=== PATIENT | male | born 1950 | race Caucasian/White ===

== ENCOUNTER 2020-09-29 11:38 | Inpatient (IN) | payer BC, SELFPAY ==
[~2020-09-29] VITALS: Ht 165.1 cm; Wt 65.8 kg
--- NOTE | 2020-09-29 11:40 | NUR ---
CALLED TO HEATHER ALMANZA AND REQUESTING TO GET REPORT ON PT. SPOKE WITH MADELEINE AND RECEIVED REPORT
--- NOTE | 2020-09-29 11:40 | NUR ---
Placed in room 03 . Placed on telemetry monitor, blood pressure machine and pulse oximeter. To gown for exam. Side rails up.
[2020-09-29 11:46] VITALS: BP_SYST 165
--- NOTE | 2020-09-29 11:55 | NUR ---
DR ARTIS IN TO ASSESS
[2020-09-29] MEDS ORDERED: LevALBUTEROL HCL 1.25 MG/0.5 ML *CONC.* VIAL.NEB (XOPENEX CONC.) INH ONE (12:15)
--- NOTE | 2020-09-29 12:33 | NUR ---
LABS, EKG, RT TREATMENT COMPLETED
[2020-09-29 12:49] LABS: ANION GAP 8 (5-15); CALCIUM 8.5 mg/dL (8.4-11.0); CHLORIDE 95 mmol/L (98-107); CREATININE 1.12 mg/dL (0.55-1.30); GLUCOSE 118 mg/dL (70-99); POTASSIUM 3.4 mmol/L (3.5-5.1); SODIUM SERUM 131 mmol/L (136-145); UREA NITROGEN, BLOOD 44 mg/dL (8-21)
[2020-09-29 12:54] LABS: ALANINE AMINOTRANSFERASE 414 U/L (12-78); ALBUMIN 2.8 g/dL (3.4-4.8); ASPARTATE AMINOTRANSFERASE 49 U/L (10-37); TOTAL BILIRUBIN 0.7 mg/dL (0.0-1.0)
[2020-09-29] MEDS ORDERED: NITROGLYCERIN 1 INCH (GM) OINT. TD ONE (13:00)
[2020-09-29] MEDS ORDERED: ASPIRIN 81 MG TAB.CHEW PO ONE (13:00)
[2020-09-29 13:01] LABS: BASOPHILS % (AUTO) 0.2 % (0.0-2.0); EOSINOPHILS # (AUTO) 0.1 K/uL (0.0-0.4); EOSINOPHILS % (AUTO) 1.1 % (0.0-4.0); LYMPHOCYTES # (AUTO) 0.9 K/uL (1.0-5.5); LYMPHOCYTES % (AUTO) 12.5 % (20.5-51.5); MEAN CORPUSCULAR HEMOGLOBIN 27 pg (27-31); MEAN CORPUSCULAR HGB CONC 32 % (32-36); MEAN CORPUSCULAR VOLUME 84 fL (79.0-98.0); MONOCYTES # (AUTO) 1.2 K/uL (0.0-1.0); MONOCYTES % (AUTO) 16.1 % (1.7-9.3); NEUTROPHILS % (AUTO) 70.1 % (40.0-70.0); PLATELET COUNT (AUTO) 256 K/uL (130-430); RED BLOOD CELL COUNT(AUTO) 2.42 MIL/uL (4.2-6.2); RED CELL DISTRIBUTION WIDTH 21.4 % (9.0-15.0); WHITE BLOOD COUNT (AUTO) 7.2 K/uL (4.8-10.8)
[2020-09-29 13:03] LABS: INR 0.9 (0.80-1.20); PROTHROMBIN TIME 9.6 SECS (9.5-12.5)
--- NOTE | 2020-09-29 13:04 | NUR ---
TROPONIN ELEVATED 0.304 REPORTED
[2020-09-29 13:10] LABS: HEMATOCRIT 20.3 % (36-54); HEMOGLOBIN 6.6 g/dL (14.0-18.0)
--- NOTE | 2020-09-29 13:48 | NUR ---
Notified ED Admitting regarding pt pending admission/transfer. Will contact pt rehabilitation case coordinator regarding this matter.
--- NOTE | 2020-09-29 13:56 | NUR ---
Per insurance underwriter sales, requested fax of facesheet and clinicals to [phone]. Per matrix call [facility] for admission.
--- NOTE | 2020-09-29 14:08 | NUR ---
CALM, ALERT, UPDATE PROVIDED, NO DISTRESS.
[2020-09-29] MEDS ORDERED: LORazepam 2 MG/ML VIAL IVP PRN (15:00)
[2020-09-29] MEDS ORDERED: PANTOPRAZOLE SODIUM 40 MG/VIAL (PROTONIX) IVP ONE (15:00)
[2020-09-29] MEDS ORDERED: ALBUTEROL SULFATE 0.083% 2.5 MG/3 ML VIAL.NEB INH PRN (15:00)
[2020-09-29] MEDS ORDERED: BANANA BAG 1 EA, FOLIC ACID 1 MG, THIAMINE HCL 100 MG, MAGNESIUM SULFATE 1 GM, MVI 10 M... IV SCH ×5 (15:00)
[2020-09-29] MEDS ORDERED: IPRATROPIUM BROM 0.5 MG/2.5 ML VIAL.NEB (ATROVENT) INH PRN (15:00)
--- NOTE | 2020-09-29 15:04 | NUR ---
Patient will be admitted to care of [facility]. Admitted to TELE unit. Will go to room 112. Belongings list completed. Complete and up to date summary report printed. SBAR report to be given at bedside with opportunity for questions.
--- NOTE | 2020-09-29 15:15 | NUR ---
CARDIO CONSULT REASON FOR CONSULTATION:+TROPONIN WAS CONSULT CALLED?Y PERSON WHO WAS NOTIFIED:KEVIN CONSULTING PHYSICIAN:ELLEN SAGASTUME OIL WELL SERVICE UNIT OPERATOR SPECIALTY:CARDIO OIL WELL SERVICE UNIT OPERATOR PHONE NUMBER:[phone] REQUESTING PHYSICIAN:MAILE VASQUEZ
[2020-09-29 15:30] VITALS: BP_SYST 136
[2020-09-29 15:32] VITALS: BP_SYST 148
[2020-09-29] MEDS: ALBUTEROL SULFATE 0.083% 2.5 MG/3 ML VIAL.NEB INH SCH ×3 (15:58→23:40)
[2020-09-29 15:59] VITALS: BP_SYST 136
[2020-09-29] MEDS: IPRATROPIUM BROM 0.5 MG/2.5 ML VIAL.NEB (ATROVENT) INH SCH ×3 (15:59→23:40)
[2020-09-29] MEDS ORDERED: FLU VACC QS2020-21(65UP)/PF 0.7 ML/SYRINGE I.M. PRN (16:00)
[2020-09-29] MEDS: FOLIC ACID 1 MG, MVI 10 ML in NACL 0.9% 1,000 ML IV SCH (16:18)
[2020-09-29] MEDS: THIAMINE HCL 100 MG, MAGNESIUM SULFATE 1 GM in NS 100 ML IV SCH (16:18)
--- NOTE | 2020-09-29 16:57 | NUR ---
admitted to the floor, via gurney. alert, oriented, very FALSE PASS. Hearing aid on Left ear is not working properly, because battery down, patient stated. For now communication via paper written for him to read 1/ able to get out of bed, walked with a cane to bathroom with standby assistance, sob on exertion, noticeably, needs oxgyen NC 2liter right away, despite the fact, lungs clear to auscultation 2/ both daughter and son called, they cant even provide list of medications , patient has been taking 3/ from [facility], advised by family members, patient has an marko ERICA on the phone, which patients been using for communication.
[2020-09-29 20:10] VITALS: BP_SYST 108
[2020-09-29] MEDS: PANTOPRAZOLE SODIUM 40 MG/VIAL (PROTONIX) IVP SCH (21:46)
--- NOTE | 2020-09-29 22:25 | NUR ---
BT INITIATION: Consent signed with morning shift RN per patient agreeing to administration of blood. Blood has been type and crossmatched. Blood sent from blood bank. Information on unit of blood checked against patient wristband at bedside by two nurses. All information matches. Patient or responsible constitution party informed of potential complications associated with blood transfusion. Informed of possible transfusion reaction symptoms. Aware of need to notify nurse at once of itching, shortness of breath, flushing, feeling of impending doom, or other symptoms not previously present. Vital signs taken within 5 minutes prior to initiation of transfusion. RN will remain with patient for first 15 minutes of transfusion at which time vital signs will be re-assessed.
[2020-09-30 00:16] VITALS: BP_SYST 136
--- NOTE | 2020-09-30 01:35 | NUR ---
BT INITIATION: Consent signed with morning shift RN per patient agreeing to administration of blood. Blood has been type and crossmatched. Blood sent from blood bank. Information on unit of blood checked against patient wristband at bedside by two nurses. All information matches. Patient or responsible green party informed of potential complications associated with blood transfusion. Informed of possible transfusion reaction symptoms. Aware of need to notify nurse at once of itching, shortness of breath, flushing, feeling of impending doom, or other symptoms not previously present. Vital signs taken within 5 minutes prior to initiation of transfusion. RN will remain with patient for first 15 minutes of transfusion at which time vital signs will be re-assessed.
[2020-09-30] MEDS: ALBUTEROL SULFATE 0.083% 2.5 MG/3 ML VIAL.NEB INH SCH ×4 (03:00→16:59)
[2020-09-30] MEDS: IPRATROPIUM BROM 0.5 MG/2.5 ML VIAL.NEB (ATROVENT) INH SCH ×4 (03:00→17:00)
[2020-09-30 04:40] VITALS: BP_SYST 145
--- NOTE | 2020-09-30 06:30 | NUR ---
CLOSING NOTES Patient resting in bed, awake, breathing evenly and nonlabored on 2L of oxygen via NC. Banana bag running, patient tolerating it well. Patient finished 3 bags or PRBC's during the shift, patient tolerated them well. Patient tolerated his due medications well. Patient denies any SOB or difficulty breathing at this time. No s/s of distress at this time, no other needs at this time. Needs met throughout the shift. Fall/safety/aspiration precautions, will endorse care to morning shift RN.
[2020-09-30 07:56] LABS: HEMATOCRIT 25.8 % (36-54); HEMOGLOBIN 8.5 g/dL (14.0-18.0)
[2020-09-30 08:00] VITALS: BP_SYST 161
--- NOTE | 2020-09-30 08:00 | NUR ---
initial notes rec patient awake alert with hob elevated. ivf infusing well on the l forearm. no infiltration noted. resp easy and unlabored. no sob noted. bed to the lowest position and side rails up and locked. call light within reached . bed close to the nurses station.
[2020-09-30 08:15] LABS: ANION GAP 8 (5-15); CALCIUM 8.1 mg/dL (8.4-11.0); CHLORIDE 102 mmol/L (98-107); CREATININE 0.88 mg/dL (0.55-1.30); GLUCOSE 94 mg/dL (70-99); POTASSIUM 3.4 mmol/L (3.5-5.1); SODIUM SERUM 136 mmol/L (136-145); UREA NITROGEN, BLOOD 26 mg/dL (8-21)
--- NOTE | 2020-09-30 08:46 | NUR ---
CONSULTATION PAGED REASON FOR CONSULTATION:GI BLEEDING WAS CONSULT CALED?Y PERSON WHO WAS NOTIFIED:MAGUI SALINAS NOTIFIED CONSULTING PHYSICIAN:MAGUI SALINAS CASINO DUTY MANAGER SPECIALTY:GI CASINO DUTY MANAGER PHONE NUMBER:[phone] REQUESTING PHYSICIAN:MAILE VASQUEZ -
[2020-09-30] MEDS: PANTOPRAZOLE SODIUM 40 MG/VIAL (PROTONIX) IVP SCH ×2 (09:57→21:13)
[2020-09-30 10:45] LABS: TOTAL IRON BIND. CAPACITY 386 ug/dL (250-450)
[2020-09-30 12:20] VITALS: BP_SYST 155
--- NOTE | 2020-09-30 13:40 | NUR ---
SS notes/Substance Abuse Resource: ELECTRIC MOTOR REPAIRING SUPERVISOR emailed daughter Lorie with Substance Abuse Resource list to [email or web address]. Per Irvona, patient/family has to contact [facility] to get contracted list; dtr understood and will call. SS will follow up.
[2020-09-30] MEDS: FOLIC ACID 1 MG, MVI 10 ML in NACL 0.9% 1,000 ML IV SCH (16:51)
[2020-09-30] MEDS: THIAMINE HCL 100 MG, MAGNESIUM SULFATE 1 GM in NS 100 ML IV SCH (16:52)
[2020-09-30 16:59] VITALS: BP_SYST 141
[2020-09-30] MEDS ORDERED: OMEP20CA15 PO (18:37)
[2020-09-30] MEDS ORDERED: LOSA100T3 PO (18:37)
[2020-09-30] MEDS ORDERED: ATOR40TA68 PO (18:37)
[2020-09-30] MEDS ORDERED: POTA-88 PO (18:37)
[2020-09-30 20:15] VITALS: BP_SYST 124
--- NOTE | 2020-09-30 20:32 | NUR ---
SPOKE WITH DR. MAHER, NOTIFIED THAT PATIENT HAS BEEN HAVING BLOODY OR BLOOD TINGED URINE, ORDERED FOR A UA.
[2020-09-30 21:09] LABS: BASOPHILS % (AUTO) 0.2 % (0.0-2.0); EOSINOPHILS # (AUTO) 0.1 K/uL (0.0-0.4); EOSINOPHILS % (AUTO) 1.6 % (0.0-4.0); HEMATOCRIT 25.2 % (36-54); HEMOGLOBIN 8.3 g/dL (14.0-18.0); LYMPHOCYTES # (AUTO) 0.8 K/uL (1.0-5.5); LYMPHOCYTES % (AUTO) 11.6 % (20.5-51.5); MEAN CORPUSCULAR HEMOGLOBIN 29 pg (27-31); MEAN CORPUSCULAR HGB CONC 33 % (32-36); MEAN CORPUSCULAR VOLUME 88 fL (79.0-98.0); MONOCYTES # (AUTO) 1.2 K/uL (0.0-1.0); MONOCYTES % (AUTO) 16.9 % (1.7-9.3); NEUTROPHILS # (AUTO) 5.1 K/uL (1.8-7.7); NEUTROPHILS % (AUTO) 69.7 % (40.0-70.0); PLATELET COUNT (AUTO) 197 K/uL (130-430); RED BLOOD CELL COUNT(AUTO) 2.86 MIL/uL (4.2-6.2); RED CELL DISTRIBUTION WIDTH 19.4 % (9.0-15.0); WHITE BLOOD COUNT (AUTO) 7.3 K/uL (4.8-10.8)
[2020-09-30 22:23] LABS: BILIRUBIN,URINE 1+ (NEGATIVE); BLOOD, URINE 3+ (NEGATIVE); CLARITY/URINE SL CLOUDY (CLEAR); COLOR,URINE RED (YELLOW); GLUCOSE,URINE NEGATIVE (NEGATIVE); KETONES,URINE NEGATIVE (NEGATIVE); LEUKOCYTE ESTERASE ,URINE TRACE (NEGATIVE); NITRITE, URINE NEGATIVE (NEGATIVE); PH,URINE 6.5 (5.0-8.0); PROTEIN URINE 2+ (NEGATIVE)
[2020-09-30 23:17] LABS: BACTERIA,URINE FEW /HPF (None Seen); MUCUS,URINE None Seen /LPF (None Seen); RBC,URINE >100 /HPF (0-3)
[2020-10-01 01:39] VITALS: BP_SYST 154
[2020-10-01 07:11] LABS: BASOPHILS % (AUTO) 0.3 % (0.0-2.0); EOSINOPHILS # (AUTO) 0.2 K/uL (0.0-0.4); EOSINOPHILS % (AUTO) 2.6 % (0.0-4.0); HEMATOCRIT 29.1 % (36-54); HEMOGLOBIN 9.5 g/dL (14.0-18.0); LYMPHOCYTES # (AUTO) 0.7 K/uL (1.0-5.5); LYMPHOCYTES % (AUTO) 8.3 % (20.5-51.5); MEAN CORPUSCULAR HEMOGLOBIN 29 pg (27-31); MEAN CORPUSCULAR HGB CONC 33 % (32-36); MEAN CORPUSCULAR VOLUME 88 fL (79.0-98.0); MONOCYTES # (AUTO) 1.1 K/uL (0.0-1.0); MONOCYTES % (AUTO) 13.5 % (1.7-9.3); NEUTROPHILS # (AUTO) 6.1 K/uL (1.8-7.7); NEUTROPHILS % (AUTO) 75.3 % (40.0-70.0); PLATELET COUNT (AUTO) 228 K/uL (130-430); RED BLOOD CELL COUNT(AUTO) 3.32 MIL/uL (4.2-6.2); RED CELL DISTRIBUTION WIDTH 20.5 % (9.0-15.0); WHITE BLOOD COUNT (AUTO) 8.1 K/uL (4.8-10.8)
[2020-10-01] MEDS: IPRATROPIUM BROM 0.5 MG/2.5 ML VIAL.NEB (ATROVENT) INH SCH ×2 (07:32→11:00)
[2020-10-01] MEDS: ALBUTEROL SULFATE 0.083% 2.5 MG/3 ML VIAL.NEB INH SCH ×2 (07:32→11:00)
[2020-10-01 07:37] LABS: ALANINE AMINOTRANSFERASE 249 U/L (12-78); ALBUMIN 2.6 g/dL (3.4-4.8); ANION GAP 6 (5-15); ASPARTATE AMINOTRANSFERASE 26 U/L (10-37); CALCIUM 8.1 mg/dL (8.4-11.0); CHLORIDE 104 mmol/L (98-107); CREATININE 0.81 mg/dL (0.55-1.30); GLUCOSE 87 mg/dL (70-99); POTASSIUM 3.2 mmol/L (3.5-5.1); SODIUM SERUM 138 mmol/L (136-145); TOTAL BILIRUBIN 0.9 mg/dL (0.0-1.0); UREA NITROGEN, BLOOD 13 mg/dL (8-21)
[2020-10-01 07:38] VITALS: BP_SYST 182
--- NOTE | 2020-10-01 07:59 | NUR ---
initial notes rec patient awake alert with ivl on the r ac in place. resp easy and unlabored. with o2 at 2 liters via nasal cannula no osb noted. bed to the lowest position and side rails up and locked. call light withn reached and knows when to call for assistance.
[2020-10-01] MEDS: PANTOPRAZOLE SODIUM 40 MG/VIAL (PROTONIX) IVP SCH (09:12)
--- NOTE | 2020-10-01 10:40 | NUR ---
SS notes/ETOH: THREADING MACHINE TENDER atttempted to meet with patient for ETOH resources but was with PT. SS will follow up.
[2020-10-01 11:32] VITALS: BP_SYST 122
[2020-10-01 14:35] VITALS: BP_SYST 122
--- NOTE | 2020-10-01 15:31 | NUR ---
HEATHER ALMANZA WAS CALLED RE: TO INFORM THAT PT IS ON THE WAY VIA [place]. REQUESTED THAT SOMEONE MUST BE THERE TO HELP HIM GET TO H IS ROOM. SPOKE TO MANNY
--- NOTE | 2020-10-01 15:35 | NUR ---
closing notes pt was discharged to [facility]. ivl and id band was removed. no sob noted. med rec was explained to patient and follow up appt with his pmd. was wheeled outside ,no sob noted. [facility] was called that patient was coming to there facility. daughter too was called and aware of the transfer. she also stated that dr napier called her and updated re patient's condition prior to d/c.
[2020-10-01 15:46] VITALS: BP_SYST 148
[2020-10-02 05:08] LABS: HEPATITIS A AB, IgM Negative (Negative); HEPATITIS B CORE AB, IgM Negative (Negative); HEPATITIS B SURFACE AG Negative (Negative)
--- NOTE | 2020-10-04 08:17 | NUR ---
Disposition:01
== END 2020-10-01 15:35 | disposition home or self-care (01) | DRG 811 ==
LOC: SED 11:38 → STU 14:13
PROVIDERS: ADMIT Internal Medicine Hospice and Palliative Medicine; ATTEND Internal Medicine Hospice and Palliative Medicine
PROC: 30233N1 Transfusion of Nonautologous Red Blood Cells into Peripheral Vein, Percutaneous Approach (ICD-10-PCS; principal; 2020-09-29)
DX: D64.9 Anemia, unspecified (principal); I21.A1 Myocardial infarction type 2; H91.93 Unspecified hearing loss, bilateral; Z20.822 Contact with and (suspected) exposure to COVID-19; F10.10 Alcohol abuse, uncomplicated; Y90.9 Presence of alcohol in blood, level not specified; I10 Essential (primary) hypertension; Z85.46 Personal history of malignant neoplasm of prostate; Z87.891 Personal history of nicotine dependence; Z90.79 Acquired absence of other genital organ(s)
CPT/HCPCS: 36415; 36600; 71045; 76700-TC; 80048; 80053; 80074; 81000; 82272; 82607; 82803-TC; 83540; 83550; 83880; 84484; 85018; 85025; 85049-TC; 85610-TC; 85730-TC; 86886; 86900; 86901; 86920; 87086; 93005; 93306; 94640; 94760; C9113; G0378; J2060; J3411; J3475; J3490; J7030; J7040; J7050; J7612; J7613; P9021

== ENCOUNTER 2020-10-11 18:47 | Emergency (ER) | payer BC, SELFPAY ==
[~2020-10-11] VITALS: Ht 170.2 cm; Wt 72.6 kg
[~2020-10-11 18:47] MED LIST: ATOR40TA68 PO; LOSA100T3 PO; OMEP20CA15 PO; POTA-88 PO
[2020-10-11 19:00] VITALS: BP_SYST 120
[2020-10-11] MEDS ORDERED: OXYMETAZOLINE HCL 0.05% NASAL SPRAY NS ONE (20:00)
[2020-10-11 21:04] LABS: HEMATOCRIT 26.6 % (36-54); HEMOGLOBIN 8.8 g/dL (14.0-18.0); MEAN CORPUSCULAR HEMOGLOBIN 29 pg (27-31); MEAN CORPUSCULAR HGB CONC 33 % (32-36); MEAN CORPUSCULAR VOLUME 87 fL (79.0-98.0); PLATELET COUNT (AUTO) 244 K/uL (130-430); RED BLOOD CELL COUNT(AUTO) 3.08 MIL/uL (4.2-6.2); RED CELL DISTRIBUTION WIDTH 18.4 % (9.0-15.0); WHITE BLOOD COUNT (AUTO) 9.1 K/uL (4.8-10.8)
[2020-10-11 21:14] LABS: CHLORIDE 99 mmol/L (98-107); POTASSIUM 3.8 mmol/L (3.5-5.1); SODIUM SERUM 135 mmol/L (136-145)
[2020-10-11 21:15] LABS: ANION GAP 7 (5-15); CALCIUM 9.1 mg/dL (8.4-11.0); CREATININE 0.95 mg/dL (0.55-1.30); GLUCOSE 100 mg/dL (70-99); UREA NITROGEN, BLOOD 25 mg/dL (8-21)
[2020-10-11 21:18] LABS: ALANINE AMINOTRANSFERASE 34 U/L (12-78); ALBUMIN 2.6 g/dL (3.4-4.8); ASPARTATE AMINOTRANSFERASE 16 U/L (10-37); TOTAL BILIRUBIN 0.4 mg/dL (0.0-1.0)
[2020-10-11 23:16] VITALS: BP_SYST 148
== END 2020-10-11 23:16 | disposition home or self-care (01) ==
LOC: SED 18:47
DX: R04.0 Epistaxis (principal); Z79.899 Other long term (current) drug therapy
CPT/HCPCS: 36415; 80053; 83051; 85014; 85048; 85049-TC; 85610-TC; 99283

== ENCOUNTER 2021-02-26 12:03 | Inpatient (IN) | payer BC, SELFPAY ==
[~2021-02-26] VITALS: Ht 175.3 cm; Wt 68.0 kg
[2021-02-26 12:12] VITALS: BP_SYST 126
[2021-02-26] MEDS ORDERED: LORazepam 2 MG/ML VIAL ONE (12:45)
[2021-02-26] MEDS ORDERED: LORazepam 2 MG/ML VIAL IVP ONE (12:45)
[2021-02-26 12:54] LABS: ANION GAP 12 (5-15); BASOPHILS % (AUTO) 0.3 % (0.0-2.0); CALCIUM 8.9 mg/dL (8.4-11.0); CHLORIDE 99 mmol/L (98-107); CREATININE 0.94 mg/dL (0.55-1.30); EOSINOPHILS # (AUTO) 0.1 K/uL (0.0-0.4); EOSINOPHILS % (AUTO) 1.5 % (0.0-4.0); GLUCOSE 100 mg/dL (70-99); HEMATOCRIT 29.8 % (36-54); HEMOGLOBIN 9.8 g/dL (14.0-18.0); LYMPHOCYTES # (AUTO) 0.9 K/uL (1.0-5.5); LYMPHOCYTES % (AUTO) 19.8 % (20.5-51.5); MEAN CORPUSCULAR HEMOGLOBIN 30 pg (27-31); MEAN CORPUSCULAR HGB CONC 33 % (32-36); MEAN CORPUSCULAR VOLUME 92 fL (79.0-98.0); MONOCYTES # (AUTO) 0.9 K/uL (0.0-1.0); MONOCYTES % (AUTO) 19.9 % (1.7-9.3); NEUTROPHILS # (AUTO) 2.6 K/uL (1.8-7.7); NEUTROPHILS % (AUTO) 58.5 % (40.0-70.0); PLATELET COUNT (AUTO) 148 K/uL (130-430); POTASSIUM 3.2 mmol/L (3.5-5.1); RED BLOOD CELL COUNT(AUTO) 3.25 MIL/uL (4.2-6.2); RED CELL DISTRIBUTION WIDTH 18.9 % (9.0-15.0); SODIUM SERUM 138 mmol/L (136-145); UREA NITROGEN, BLOOD 19 mg/dL (8-21); WHITE BLOOD COUNT (AUTO) 4.4 K/uL (4.8-10.8)
[2021-02-26 12:58] LABS: ALANINE AMINOTRANSFERASE 35 U/L (12-78); ASPARTATE AMINOTRANSFERASE 69 U/L (10-37); TOTAL BILIRUBIN 0.3 mg/dL (0.0-1.0)
[2021-02-26 12:59] LABS: INR 0.9 (0.80-1.20); PROTHROMBIN TIME 9.2 SECS (9.5-12.5)
[2021-02-26 13:03] LABS: ACETAMINOPHEN < 1 ug/mL (1-30)
[2021-02-26 13:06] LABS: ALCOHOL, BLOOD 421 mg/dL (<10)
[2021-02-26 13:30] LABS: ACETONE, SERUM NEGATIVE (NEGATIVE)
[2021-02-26] MEDS ORDERED: HYDROcodone/ACETAMIN 5-325 MG TAB (NORCO/ VICODIN) PO PRN (16:45)
[2021-02-26] MEDS ORDERED: POTASSIUM CHLORIDE 20 MEQ TAB.PRT.SR PO PRN (16:45)
[2021-02-26] MEDS ORDERED: ONDANSETRON HCL 4 MG/2 ML VIAL IVP PRN (16:45)
[2021-02-26] MEDS ORDERED: FOLIC ACID 1 MG TABLET PO ONE (16:45)
[2021-02-26] MEDS ORDERED: THIAMINE HCL 100 MG TABLET PO ONE (16:45)
[2021-02-26] MEDS ORDERED: LORazepam 1 MG TABLET PO PRN (16:45)
[2021-02-26] MEDS ORDERED: FAMOTIDINE 20 MG TABLET PO ONE (17:00)
[2021-02-26] MEDS: NACL 0.9% 1,000 ML IV SCH (17:33)
[2021-02-26] MEDS ORDERED: chlordiazePOXIDE HCL 10 MG CAPSULE ONE (20:21)
[2021-02-26] MEDS: HEPARIN SODIUM,PORCINE 5,000 UNITS/ML VIAL SUBCUT SCH (20:44)
[2021-02-27 08:00] VITALS: BP_SYST 197
[2021-02-27] MEDS: FAMOTIDINE 20 MG TABLET PO SCH (08:06)
[2021-02-27] MEDS: LOSARTAN POTASSIUM 50 MG TABLET (COZAAR) PO SCH (08:06)
[2021-02-27] MEDS: FOLIC ACID 1 MG TABLET PO SCH (08:06)
[2021-02-27] MEDS: THIAMINE HCL 100 MG TABLET PO SCH (08:06)
[2021-02-27] MEDS: ATORVASTATIN 20 MG TABLET PO SCH (08:06)
[2021-02-27] MEDS: HEPARIN SODIUM,PORCINE 5,000 UNITS/ML VIAL SUBCUT SCH ×2 (08:08→21:49)
[2021-02-27 08:52] VITALS: BP_SYST 157
[2021-02-27] MEDS: NACL 0.9% 1,000 ML IV SCH (08:52)
[2021-02-27 09:52] LABS: BASOPHILS % (AUTO) 0.2 % (0.0-2.0); EOSINOPHILS % (AUTO) 0.3 % (0.0-4.0); HEMATOCRIT 28.3 % (36-54); HEMOGLOBIN 9.3 g/dL (14.0-18.0); LYMPHOCYTES # (AUTO) 0.4 K/uL (1.0-5.5); LYMPHOCYTES % (AUTO) 9.3 % (20.5-51.5); MEAN CORPUSCULAR HEMOGLOBIN 30 pg (27-31); MEAN CORPUSCULAR HGB CONC 33 % (32-36); MEAN CORPUSCULAR VOLUME 91 fL (79.0-98.0); MONOCYTES % (AUTO) 24.6 % (1.7-9.3); NEUTROPHILS # (AUTO) 2.7 K/uL (1.8-7.7); NEUTROPHILS % (AUTO) 65.6 % (40.0-70.0); PLATELET COUNT (AUTO) 117 K/uL (130-430); RED CELL DISTRIBUTION WIDTH 18.5 % (9.0-15.0)
[2021-02-27 10:04] LABS: ANION GAP 4 (5-15); CALCIUM 8.8 mg/dL (8.4-11.0); CHLORIDE 100 mmol/L (98-107); CREATININE 0.92 mg/dL (0.55-1.30); GLUCOSE 112 mg/dL (70-99); POTASSIUM 3.9 mmol/L (3.5-5.1); SODIUM SERUM 136 mmol/L (136-145); UREA NITROGEN, BLOOD 19 mg/dL (8-21)
[2021-02-27 12:46] VITALS: BP_SYST 125
[2021-02-27 16:13] VITALS: BP_SYST 131
[2021-02-27 19:30] VITALS: BP_SYST 146
[2021-02-28] VITALS (7 sets, daily range): BP systolic 111–146
[2021-02-28] MEDS: NACL 0.9% 1,000 ML IV SCH ×2 (04:41→19:03)
[2021-02-28 07:17] LABS: BASOPHILS % (AUTO) 0.5 % (0.0-2.0); EOSINOPHILS # (AUTO) 0.2 K/uL (0.0-0.4); EOSINOPHILS % (AUTO) 6.2 % (0.0-4.0); HEMATOCRIT 27.6 % (36-54); HEMOGLOBIN 8.9 g/dL (14.0-18.0); LYMPHOCYTES # (AUTO) 0.6 K/uL (1.0-5.5); LYMPHOCYTES % (AUTO) 18.5 % (20.5-51.5); MEAN CORPUSCULAR HEMOGLOBIN 30 pg (27-31); MEAN CORPUSCULAR HGB CONC 32 % (32-36); MEAN CORPUSCULAR VOLUME 92 fL (79.0-98.0); MONOCYTES # (AUTO) 0.6 K/uL (0.0-1.0); MONOCYTES % (AUTO) 17.3 % (1.7-9.3); NEUTROPHILS # (AUTO) 1.9 K/uL (1.8-7.7); NEUTROPHILS % (AUTO) 57.5 % (40.0-70.0); PLATELET COUNT (AUTO) 111 K/uL (130-430); RED CELL DISTRIBUTION WIDTH 17.8 % (9.0-15.0); WHITE BLOOD COUNT (AUTO) 3.3 K/uL (4.8-10.8)
[2021-02-28 07:54] LABS: ANION GAP 8 (5-15); CALCIUM 8.6 mg/dL (8.4-11.0); CHLORIDE 103 mmol/L (98-107); CREATININE 0.79 mg/dL (0.55-1.30); GLUCOSE 97 mg/dL (70-99); POTASSIUM 3.2 mmol/L (3.5-5.1); SODIUM SERUM 139 mmol/L (136-145); UREA NITROGEN, BLOOD 13 mg/dL (8-21)
[2021-02-28] MEDS: HEPARIN SODIUM,PORCINE 5,000 UNITS/ML VIAL SUBCUT SCH ×2 (10:02→21:27)
[2021-02-28] MEDS: FAMOTIDINE 20 MG TABLET PO SCH (10:04)
[2021-02-28] MEDS: FOLIC ACID 1 MG TABLET PO SCH (10:04)
[2021-02-28] MEDS: LOSARTAN POTASSIUM 50 MG TABLET (COZAAR) PO SCH (10:04)
[2021-02-28] MEDS: THIAMINE HCL 100 MG TABLET PO SCH (10:04)
[2021-02-28] MEDS: ATORVASTATIN 20 MG TABLET PO SCH (10:04)
[2021-02-28] MEDS ORDERED: MIRTAZAPINE 15 MG TABLET PO SCH (21:00)
[2021-03-01 07:16] LABS: BASOPHILS % (AUTO) 0.3 % (0.0-2.0); EOSINOPHILS # (AUTO) 0.2 K/uL (0.0-0.4); EOSINOPHILS % (AUTO) 6.2 % (0.0-4.0); HEMATOCRIT 28.6 % (36-54); HEMOGLOBIN 9.1 g/dL (14.0-18.0); LYMPHOCYTES # (AUTO) 0.6 K/uL (1.0-5.5); MEAN CORPUSCULAR HEMOGLOBIN 30 pg (27-31); MEAN CORPUSCULAR HGB CONC 32 % (32-36); MEAN CORPUSCULAR VOLUME 93 fL (79.0-98.0); MONOCYTES # (AUTO) 0.4 K/uL (0.0-1.0); MONOCYTES % (AUTO) 10.2 % (1.7-9.3); NEUTROPHILS # (AUTO) 2.5 K/uL (1.8-7.7); NEUTROPHILS % (AUTO) 66.3 % (40.0-70.0); PLATELET COUNT (AUTO) 130 K/uL (130-430); RED BLOOD CELL COUNT(AUTO) 3.07 MIL/uL (4.2-6.2); WHITE BLOOD COUNT (AUTO) 3.8 K/uL (4.8-10.8)
[2021-03-01 07:35] LABS: ANION GAP 11 (5-15); CALCIUM 9.1 mg/dL (8.4-11.0); CHLORIDE 104 mmol/L (98-107); CREATININE 0.78 mg/dL (0.55-1.30); GLUCOSE 85 mg/dL (70-99); POTASSIUM 3.5 mmol/L (3.5-5.1); SODIUM SERUM 139 mmol/L (136-145); UREA NITROGEN, BLOOD 14 mg/dL (8-21)
[2021-03-01 08:00] VITALS: BP_SYST 149
[2021-03-01] MEDS: FAMOTIDINE 20 MG TABLET PO SCH (08:40)
[2021-03-01] MEDS: THIAMINE HCL 100 MG TABLET PO SCH (08:40)
[2021-03-01] MEDS: FOLIC ACID 1 MG TABLET PO SCH (08:41)
[2021-03-01] MEDS: ATORVASTATIN 20 MG TABLET PO SCH (08:41)
[2021-03-01] MEDS: LOSARTAN POTASSIUM 50 MG TABLET (COZAAR) PO SCH (08:42)
[2021-03-01] MEDS: HEPARIN SODIUM,PORCINE 5,000 UNITS/ML VIAL SUBCUT SCH (08:49)
[2021-03-01 11:56] VITALS: BP_SYST 149
[2021-03-01 12:32] VITALS: BP_SYST 123
[2021-03-01 16:20] VITALS: BP_SYST 120
== END 2021-03-01 16:15 | disposition home health service (06) | DRG 897 ==
LOC: SED 12:03 → STU 16:40
PROVIDERS: ADMIT Hospitalist; ATTEND Hospitalist
DX: F10.129 Alcohol abuse with intoxication, unspecified (principal); E44.0 Moderate protein-calorie malnutrition; E87.2 Acidosis; E87.6 Hypokalemia; Y90.9 Presence of alcohol in blood, level not specified; K21.9 Gastro-esophageal reflux disease without esophagitis; E78.5 Hyperlipidemia, unspecified; D64.9 Anemia, unspecified; R74.01 Elevation of levels of liver transaminase levels; F32.9 Major depressive disorder, single episode, unspecified; C61 Malignant neoplasm of prostate; C67.9 Malignant neoplasm of bladder, unspecified; Z20.822 Contact with and (suspected) exposure to COVID-19; Z79.899 Other long term (current) drug therapy; Z68.22 Body mass index [BMI] 22.0-22.9, adult
CPT/HCPCS: 36415; 70450-TC; 71045; 76376; 80048; 80053; 82009; 82140; 82550; 83605; 83880; 84484; 85025; 85610-TC; 85730-TC; 86140; 93005; 96374; 97116-GP; 97530-GP; 99285; G0378; G0480; G0481; G0482; J1644; J2060

== ENCOUNTER 2021-04-26 14:21 | Inpatient (IN) | payer BC, SELFPAY ==
[~2021-04-26] VITALS: Ht 175.3 cm; Wt 70.3 kg
[2021-04-26 14:27] VITALS: BP_SYST 127; BP_SYST 160
[2021-04-26 15:53] LABS: BASOPHILS % (AUTO) 0.3 % (0.0-2.0); EOSINOPHILS % (AUTO) 0.1 % (0.0-4.0); HEMATOCRIT 24.7 % (36-54); HEMOGLOBIN 7.9 g/dL (14.0-18.0); LYMPHOCYTES # (AUTO) 0.4 K/uL (1.0-5.5); LYMPHOCYTES % (AUTO) 4.1 % (20.5-51.5); MEAN CORPUSCULAR HEMOGLOBIN 26 pg (27-31); MEAN CORPUSCULAR HGB CONC 32 % (32-36); MEAN CORPUSCULAR VOLUME 82 fL (79.0-98.0); MONOCYTES # (AUTO) 1.1 K/uL (0.0-1.0); MONOCYTES % (AUTO) 11.9 % (1.7-9.3); NEUTROPHILS # (AUTO) 7.7 K/uL (1.8-7.7); NEUTROPHILS % (AUTO) 83.6 % (40.0-70.0); PLATELET COUNT (AUTO) 194 K/uL (130-430); RED BLOOD CELL COUNT(AUTO) 3.03 MIL/uL (4.2-6.2); RED CELL DISTRIBUTION WIDTH 20.8 % (9.0-15.0); WHITE BLOOD COUNT (AUTO) 9.2 K/uL (4.8-10.8)
[2021-04-26 15:57] LABS: ANION GAP 16 (5-15); CALCIUM 9.4 mg/dL (8.4-11.0); CHLORIDE 93 mmol/L (98-107); CREATININE 1.75 mg/dL (0.55-1.30); GLUCOSE 99 mg/dL (70-99); POTASSIUM 3.1 mmol/L (3.5-5.1); SODIUM SERUM 134 mmol/L (136-145); UREA NITROGEN, BLOOD 24 mg/dL (8-21)
[2021-04-26 16:07] LABS: ALANINE AMINOTRANSFERASE 21 U/L (12-78); ALBUMIN 3.2 g/dL (3.4-4.8); ASPARTATE AMINOTRANSFERASE 36 U/L (10-37); TOTAL BILIRUBIN 0.6 mg/dL (0.0-1.0)
[2021-04-26 16:50] LABS: PROTHROMBIN TIME 10.2 SECS (9.5-12.5)
[2021-04-26] MEDS ORDERED: POTASSIUM CHLORIDE 10 MEQ TAB.PRT.SR PO ONE (17:15)
[2021-04-26 21:19] VITALS: BP_SYST 129
[2021-04-27 01:00] VITALS: BP_SYST 129
[2021-04-27] MEDS ORDERED: NALOXONE HCL 0.4 MG/ML AMP (NARCAN) IVP PRN (03:30)
[2021-04-27] MEDS ORDERED: ACETAMINOPHEN 325 MG TABLET PO PRN ×2 (03:30→08:00)
[2021-04-27] MEDS ORDERED: ALBUTEROL SULFATE 0.083% 2.5 MG/3 ML VIAL.NEB INH PRN (03:30)
[2021-04-27] MEDS ORDERED: HYDROcodone/ACETAMIN 5-325 MG TAB (NORCO/ VICODIN) PO PRN (03:30)
[2021-04-27] MEDS ORDERED: MORPHINE 4 MG INJ. 4 MG/ML VIAL IVP PRN (03:30)
[2021-04-27 04:20] VITALS: BP_SYST 129
[2021-04-27 06:29] LABS: BASOPHILS % (AUTO) 0.3 % (0.0-2.0); EOSINOPHILS # (AUTO) 0.1 K/uL (0.0-0.4); EOSINOPHILS % (AUTO) 1.4 % (0.0-4.0); LYMPHOCYTES # (AUTO) 0.8 K/uL (1.0-5.5); LYMPHOCYTES % (AUTO) 16.6 % (20.5-51.5); MEAN CORPUSCULAR HEMOGLOBIN 26 pg (27-31); MEAN CORPUSCULAR HGB CONC 32 % (32-36); MEAN CORPUSCULAR VOLUME 81 fL (79.0-98.0); MONOCYTES % (AUTO) 20.1 % (1.7-9.3); NEUTROPHILS # (AUTO) 2.9 K/uL (1.8-7.7); NEUTROPHILS % (AUTO) 61.6 % (40.0-70.0); PLATELET COUNT (AUTO) 164 K/uL (130-430); RED BLOOD CELL COUNT(AUTO) 2.58 MIL/uL (4.2-6.2); RED CELL DISTRIBUTION WIDTH 21.4 % (9.0-15.0); WHITE BLOOD COUNT (AUTO) 4.7 K/uL (4.8-10.8)
[2021-04-27] MEDS: NORMAL SALINE 5 ML DISP.SYRIN IVF SCH ×3 (06:29→21:39)
[2021-04-27 07:06] LABS: ALANINE AMINOTRANSFERASE 15 U/L (12-78); ALBUMIN 2.8 g/dL (3.4-4.8); ANION GAP 9 (5-15); ASPARTATE AMINOTRANSFERASE 24 U/L (10-37); CALCIUM 8.6 mg/dL (8.4-11.0); CHLORIDE 96 mmol/L (98-107); CREATININE 1.09 mg/dL (0.55-1.30); GLUCOSE 90 mg/dL (70-99); POTASSIUM 3.2 mmol/L (3.5-5.1); SODIUM SERUM 134 mmol/L (136-145); TOTAL BILIRUBIN 0.3 mg/dL (0.0-1.0); UREA NITROGEN, BLOOD 20 mg/dL (8-21)
[2021-04-27 08:00] VITALS: BP_SYST 142
[2021-04-27] MEDS: BUDESONIDE 0.5 MG/2 ML AMPUL.NEB INH SCH ×2 (08:00→21:03)
[2021-04-27] MEDS ORDERED: IPRATROPIUM/ALBUTEROL SULFATE 3 ML AMPUL.NEB (DUONEB) INH PRN (08:00)
[2021-04-27 08:25] LABS: HEMATOCRIT 20.8 % (36-54); HEMOGLOBIN 6.7 g/dL (14.0-18.0)
[2021-04-27] MEDS: LOSARTAN POTASSIUM 50 MG TABLET (COZAAR) PO SCH (08:36)
[2021-04-27] MEDS: PANTOPRAZOLE SODIUM 40 MG TAB PO SCH (08:36)
[2021-04-27] MEDS: ATORVASTATIN 20 MG TABLET PO SCH (08:36)
[2021-04-27] MEDS ORDERED: OMEPRAZOLE Non-Formulary 20 MG CAPSULE.DR PO SCH (09:00)
[2021-04-27 12:00] VITALS: BP_SYST 137
[2021-04-27] MEDS: methylPREDNISolone SOD SUCC 40 MG/ML VIAL IVP SCH ×2 (13:47→21:38)
[2021-04-27 16:00] VITALS: BP_SYST 140
[2021-04-27 20:00] VITALS: BP_SYST 136
[2021-04-28] VITALS (7 sets, daily range): BP systolic 127–136
[2021-04-28] MEDS: methylPREDNISolone SOD SUCC 40 MG/ML VIAL IVP SCH ×2 (08:35→21:00)
[2021-04-28] MEDS: PANTOPRAZOLE SODIUM 40 MG TAB PO SCH (08:36)
[2021-04-28] MEDS: ATORVASTATIN 20 MG TABLET PO SCH (08:36)
[2021-04-28] MEDS: LOSARTAN POTASSIUM 50 MG TABLET (COZAAR) PO SCH (08:36)
[2021-04-28] MEDS: BUDESONIDE 0.5 MG/2 ML AMPUL.NEB INH SCH ×2 (08:39→20:35)
[2021-04-28 11:52] LABS: ANION GAP 10 (5-15); CALCIUM 8.2 mg/dL (8.4-11.0); CHLORIDE 94 mmol/L (98-107); CREATININE 1.36 mg/dL (0.55-1.30); GLUCOSE 124 mg/dL (70-99); POTASSIUM 3.4 mmol/L (3.5-5.1); SODIUM SERUM 128 mmol/L (136-145); UREA NITROGEN, BLOOD 24 mg/dL (8-21)
[2021-04-28 11:56] LABS: MEAN CORPUSCULAR HEMOGLOBIN 27 pg (27-31)
[2021-04-28 11:57] LABS: ALANINE AMINOTRANSFERASE 18 U/L (12-78); ASPARTATE AMINOTRANSFERASE 21 U/L (10-37); TOTAL BILIRUBIN 0.2 mg/dL (0.0-1.0)
[2021-04-28 12:31] LABS: HEMATOCRIT 27.4 % (36-54); HEMOGLOBIN 8.7 g/dL (14.0-18.0); MEAN CORPUSCULAR HGB CONC 32 % (32-36); MEAN CORPUSCULAR VOLUME 84 fL (79.0-98.0); PLATELET COUNT (AUTO) 226 K/uL (130-430); RED BLOOD CELL COUNT(AUTO) 3.26 MIL/uL (4.2-6.2)
[2021-04-28 12:49] LABS: BILIRUBIN,URINE NEGATIVE (NEGATIVE); BLOOD, URINE NEGATIVE (NEGATIVE); CLARITY/URINE CLEAR (CLEAR); COLOR,URINE YELLOW (YELLOW); GLUCOSE,URINE NEGATIVE (NEGATIVE); KETONES,URINE TRACE (NEGATIVE); LEUKOCYTE ESTERASE ,URINE NEGATIVE (NEGATIVE); NITRITE, URINE NEGATIVE (NEGATIVE); PH,URINE 6.5 (5.0-8.0); PROTEIN URINE NEGATIVE (NEGATIVE); UROBILINOGEN,URINE 0.2 (0.2-1.0)
[2021-04-28] MEDS ORDERED: THIAMINE HCL 100 MG TABLET PO ONE (13:15)
[2021-04-28 14:21] LABS: BASOPHILS % (MANUAL) 0 % (0-2); EOSINOPHILS % (MANUAL) 0 % (0-7); LYMPHOCYTES % (MANUAL) 9 % (20-46); MONOCYTES % (MANUAL) 8 % (0-11)
[2021-04-28] MEDS: NORMAL SALINE 5 ML DISP.SYRIN IVF SCH ×2 (15:49→22:31)
[2021-04-29] VITALS: BP_SYST 132
[2021-04-29 03:06] VITALS: BP_SYST 142
[2021-04-29 03:09] VITALS: BP_SYST 134
[2021-04-29 04:00] VITALS: BP_SYST 128
[2021-04-29] MEDS: NORMAL SALINE 5 ML DISP.SYRIN IVF SCH (05:30)
[2021-04-29] MEDS: BUDESONIDE 0.5 MG/2 ML AMPUL.NEB INH SCH (07:28)
[2021-04-29 07:55] VITALS: BP_SYST 112
[2021-04-29] MEDS: methylPREDNISolone SOD SUCC 40 MG/ML VIAL IVP SCH (08:33)
[2021-04-29] MEDS: ATORVASTATIN 20 MG TABLET PO SCH (08:33)
[2021-04-29] MEDS: LOSARTAN POTASSIUM 50 MG TABLET (COZAAR) PO SCH (08:34)
[2021-04-29] MEDS: PANTOPRAZOLE SODIUM 40 MG TAB PO SCH (08:34)
[2021-04-29] MEDS ORDERED: THIAMINE HCL 100 MG TABLET PO SCH (09:00)
[2021-04-29] MEDS ORDERED: ALBMDI INH (12:24)
[2021-04-29] MEDS ORDERED: BUDE6HFA INH (12:24)
[2021-04-29] MEDS ORDERED: PRED20TA PO (12:24)
[2021-04-29 15:55] LABS: BASOPHILS % (AUTO) 0.4 % (0.0-2.0); EOSINOPHILS % (AUTO) 0.3 % (0.0-4.0); HEMATOCRIT 27.7 % (36-54); LYMPHOCYTES # (AUTO) 0.5 K/uL (1.0-5.5); LYMPHOCYTES % (AUTO) 6.5 % (20.5-51.5); MEAN CORPUSCULAR HEMOGLOBIN 26 pg (27-31); MEAN CORPUSCULAR HGB CONC 32 % (32-36); MONOCYTES # (AUTO) 0.5 K/uL (0.0-1.0); MONOCYTES % (AUTO) 5.7 % (1.7-9.3); NEUTROPHILS # (AUTO) 7.3 K/uL (1.8-7.7); NEUTROPHILS % (AUTO) 87.1 % (40.0-70.0); PLATELET COUNT (AUTO) 278 K/uL (130-430); RED CELL DISTRIBUTION WIDTH 20.1 % (9.0-15.0); WHITE BLOOD COUNT (AUTO) 8.4 K/uL (4.8-10.8)
[2021-04-29 15:57] LABS: MEAN CORPUSCULAR VOLUME 82 fL (79.0-98.0)
[2021-04-29 16:08] VITALS: BP_SYST 112
== END 2021-04-29 16:25 | disposition home or self-care (01) | DRG 189 ==
LOC: SED 14:21 → STU 17:27
PROVIDERS: ADMIT Internal Medicine Hospice and Palliative Medicine; ATTEND Internal Medicine Hospice and Palliative Medicine
PROC: 30233N1 Transfusion of Nonautologous Red Blood Cells into Peripheral Vein, Percutaneous Approach (ICD-10-PCS; principal; 2021-04-27)
DX: J96.01 Acute respiratory failure with hypoxia (principal); N17.0 Acute kidney failure with tubular necrosis; J44.1 Chronic obstructive pulmonary disease with (acute) exacerbation; K92.2 Gastrointestinal hemorrhage, unspecified; Z20.822 Contact with and (suspected) exposure to COVID-19; F10.20 Alcohol dependence, uncomplicated; Y90.9 Presence of alcohol in blood, level not specified; D64.9 Anemia, unspecified; I10 Essential (primary) hypertension; C61 Malignant neoplasm of prostate; C67.9 Malignant neoplasm of bladder, unspecified; Z85.46 Personal history of malignant neoplasm of prostate; Z85.51 Personal history of malignant neoplasm of bladder; Z87.891 Personal history of nicotine dependence
CPT/HCPCS: 36415; 71045; 71250-TC; 76376; 80053; 81003; 82272; 83880; 84484; 85007; 85025; 85027; 85379; 85610-TC; 85730-TC; 86886; 86900; 86901; 86920; 93005; 93306; 93971; 94640; 94760; 99285; G0378; J1030; J7626; P9021

== ENCOUNTER 2021-05-23 22:09 | Emergency (ER) | payer BC, SELFPAY ==
[~2021-05-23 22:09] MED LIST changes: +ALBMDI INH; +BUDE6HFA INH; +PRED20TA PO
== END 2021-05-23 22:10 ==
LOC: SED 22:09
DX: I46.9 Cardiac arrest, cause unspecified (principal); Z79.899 Other long term (current) drug therapy
CPT/HCPCS: 99283